=== PATIENT | female | born 1945 | race Hispanic/Latino ===

== ENCOUNTER 2017-12-03 13:04 | Emergency (ER) | payer MEDICARE, MEDICAID ==
[2017-12-03 13:04] VITALS: BMI 31.3
[2017-12-03 13:30] VITALS: TEMP 97.4
[2017-12-03] MEDS ORDERED: Lidocaine 1% w Epi 1:100,000 Inj INJ ONE (14:10)
[2017-12-03] MEDS ORDERED: Bacitracin 500 Units/gm Oint Foilpak UD TOP ONE (14:11)
[2017-12-03] MEDS ORDERED: Bacitracin 500 Units/gm Oint Foilpak UD ONE (14:19)
[2017-12-03] MEDS ORDERED: Tetanus/Diphtheria Toxoids 0.5 ml Syringe IM ONE (14:19)
[2017-12-03] MEDS ORDERED: Lidocaine 1% w Epi 1:100,000 Inj ONE (14:19)
--- NOTE | 2017-12-03 14:21 | C.PDOC ---
Time Seen by Provider: 12/03/17 14:07 Chief Complaint (Nursing): Abnormal Skin Integrity Past Medical History Vital Signs: Last Vital Signs Temp 97.4 F L 12/03/17 13:26 Pulse 71 12/03/17 13:26 Resp 20 12/03/17 13:26 BP 125/74 12/03/17 13:26 Pulse Ox 100 12/03/17 13:26 - Medical History PMH: Anemia (NO MED), Arthritis, Depression, Fractures (LEFT FOREARM), Gastritis , HTN, Hypercholesterolemia, Hypothyroidism Denies: Chronic Kidney Disease Surgical History: Endoscopy - Social History Hx Alcohol Use: No Hx Substance Use: No ED Course And Treatment O2 Sat by Pulse Oximetry: 100 Disposition - Disposition
--- NOTE | 2017-12-03 14:21 | C.PDOC ---
History Of Present Illness 72 y/o female presents to the ER for evaluation of a laceration to chin which occurred [employer] after the patient tripped and fell onto her chin,hands, and knees. Note her hands and knees feel "fine". Patient denies any LOC, headache, dental pain, jaw pain, nausea, vomiting, and change in sensation. Denies blood thinners. Time Seen by Provider: 12/03/17 14:07 Chief Complaint (Nursing): Abnormal Skin Integrity History Per: Patient History/Exam Limitations: no limitations Onset/Duration Of Symptoms: Hrs Current Symptoms Are (Timing): Still Present Severity: Moderate Past Medical History Reviewed: Historical Data, Nursing Documentation, Vital Signs Vital Signs: Last Vital Signs Temp 97.4 F L 12/03/17 13:26 Pulse 67 12/03/17 16:11 Resp 18 12/03/17 16:11 BP 149/74 12/03/17 16:11 Pulse Ox 100 12/03/17 17:53 - Medical History PMH: Anemia (NO MED), Arthritis, Depression, Fractures (LEFT FOREARM), Gastritis , HTN, Hypercholesterolemia, Hypothyroidism Denies: Chronic Kidney Disease Surgical History: Endoscopy Family History: States: No Known Family Hx - Social History Hx Alcohol Use: No Hx Substance Use: No Review Of Systems Gastrointestinal: Negative for: Nausea, Vomiting Skin: Positive for: Other (laceration to chin) Neurological: Negative for: Headache Physical Exam - Physical Exam Appears: Well, Non-toxic, No Acute Distress Skin: Warm Head: Normacephalic, Laceration (2 cm laceration to submental) Eye(s): bilateral: Normal Inspection, PERRL, EOMI Nose: Normal Oral Mucosa: Moist Tongue: No Laceration, No Bleeding Teeth: Dentures, No Tender To Palpation Gingiva: No Swelling, No Bleeding Neck: Normal ROM, Supple Chest: Symmetrical Cardiovascular: Rhythm Regular Respiratory: Normal Breath Sounds, No Accessory Muscle Use, No Rales, No Rhonchi , No Wheezing Gastrointestinal/Abdominal: Soft, No Tenderness Extremity: Normal ROM, Tenderness (mild tenderness to the proximal bilateral palms, nontendern b/l knees), No Calf Tenderness, Capillary Refill (<2 sec), No Deformity, No Swelling Pulses: Left Radial: Normal, Right Radial: Normal, Left Dorsalis Pedis: Normal, Right Dorsalis Pedis: Normal Neurological/Psych: Oriented x3, Normal Speech, Normal Motor, Normal Sensation ED Course And Treatment O2 Sat by Pulse Oximetry: 100 (RA) Pulse Ox Interpretation: Normal - CT Scan/US Head CT Other Rad Studies (CT/US): Read By Radiologist CT/US Interpretation: PROCEDURE: CT HEAD WITHOUT CONTRAST. HISTORY: trauma. COMPARISON: None available. TECHNIQUE: Axial computed tomography images were obtained through the head/brain without intravenous contrast. Radiation dose: Total exam DLP = 764.25 mGy-cm. This CT exam was performed using one or more of the following dose reduction techniques: Automated exposure control, adjustment of the mA and/or kV according to patient size, and/or use of iterative reconstruction technique. FINDINGS: HEMORRHAGE: No intracranial hemorrhage. BRAIN: No mass effect or edema. Dense intracranial atherosclerosis. Scattered periventricular and subcortical white matter hypodensities, which are nonspecific, but often seen with chronic microvascular ischemic disease. Please note that MRI with diffusion imaging is more sensitive in the detection of acute ischemic event. VENTRICLES: No hydrocephalus. CALVARIUM: Unremarkable. PARANASAL SINUSES: Unremarkable as visualized. No significant inflammatory changes. MASTOID AIR CELLS: Unremarkable as visualized. No inflammatory changes. OTHER FINDINGS: None. IMPRESSION: No acute intracranial pathology identified. Findings as above. Progress Note: Patient offered X-Ray for hands and knees which patient declined. Sutures applied to patient's chin. On re-evaluation, pt notes she take Eliqus. Ct ordered. Copy of results given to the patient, instructed to show PMD. Family at bedside. Notes no change in behavior. Steady gait. Patient has been advised to follow up for wound check in 2 days and suture removal in 7 days. Case discussed with Dr Chavez, agreed upon plan and treatment. Laceration - Laceration Repair Submental Wound Length (In cm): 2 cm Description Of Wound: Linear Wound Cleansed With: Betadine, Sterile Saline Anesthesia: Lidocaine 1%, With Epi Wound Examination: Irrigated With Saline, No FB With Wound Exploration, No Tendon Injury With Wound Exploration Wound Closure: Suture (2) Suture Technique And Material Used: Nylon Wound Complexity: Simple Disposition - Disposition Disposition: HOME/ ROUTINE Disposition Time: 14:50 Condition: STABLE Additional Instructions: You were evaluated for your chin laceration. You should get a wound check in 2 days and suture removal in 7 days. Watch for signs of infection including redness, swelling or discharge. You did not have a headache, vomiting, neck pain , or jaw pain therefore no imaging was preformed. If this should develop or any other new symptoms, return to ER right away. Apply ice the area and take tylenol for any pain. Prescriptions: Cephalexin [cephalexin] 500 mg PO BID #14 cap Instructions: Laceration Repair Forms: [employer] (Arabic) - Clinical Impression Clinical Impression: Laceration of chin, Hand contusion - PA / LENS HARDENER / Resident Statement MD/DO has reviewed & agrees with the documentation as recorded. - Scribe Statement The provider has reviewed the documentation as recorded by the Krystinibe Beni Mullins Provider Attestation All medical record entries made by the Krystinibenrike were at my direction and personally dictated by me. I have reviewed the chart and agree that the record accurately reflects my personal performance of the history, physical exam, medical decision making, and the department course for this patient. I have also personally directed, reviewed, and agree with the discharge instructions and disposition.
--- NOTE | 2017-12-03 15:46 | CT ---
PROCEDURE: CT HEAD WITHOUT CONTRAST. HISTORY: trauma COMPARISON: None available. TECHNIQUE: Axial computed tomography images were obtained through the head/brain without intravenous contrast. Radiation dose: Total exam DLP = 764.25 mGy-cm. This CT exam was performed using one or more of the following dose reduction techniques: Automated exposure control, adjustment of the mA and/or kV according to patient size, and/or use of iterative reconstruction technique. FINDINGS: HEMORRHAGE: No intracranial hemorrhage. BRAIN: No mass effect or edema. Dense intracranial atherosclerosis. Scattered periventricular and subcortical white matter hypodensities, which are nonspecific, but often seen with chronic microvascular ischemic disease. Please note that MRI with diffusion imaging is more sensitive in the detection of acute ischemic event. VENTRICLES: No hydrocephalus. CALVARIUM: Unremarkable. PARANASAL SINUSES: Unremarkable as visualized. No significant inflammatory changes. MASTOID AIR CELLS: Unremarkable as visualized. No inflammatory changes. OTHER FINDINGS: None. IMPRESSION: No acute intracranial pathology identified. Findings as above.
[2017-12-03 16:12] VITALS: BP 149/74; PULSE 67; RESP 18
[2017-12-03 17:53] VITALS: O2SAT 100
== END 2017-12-03 16:12 | disposition home or self-care (01) ==
LOC: C.ER 13:04
DX: S01.81XA Laceration without foreign body of other part of head, initial encounter (principal); S60.222A Contusion of left hand, initial encounter; S60.221A Contusion of right hand, initial encounter; W01.0XXA Fall on same level from slipping, tripping and stumbling without subsequent striking against object, initial encounter